=== PATIENT | male | born 1990 | race Caucasian/White ===

== ENCOUNTER 2020-07-03 12:38 | Emergency (ER) | payer OTHER ==
[~2020-07-03] VITALS: Ht 180.3 cm; Wt 63.9 kg
--- NOTE | 2020-07-03 13:18 | NUR ---
PT HAS MULTIPLE COMPLAINTS. CO SOB AND UNABLE TO CATCH BREATH FOR 1 MONTH, WEAKENESS, "I BLACKED OUT ONCE ON SUNDAY" DENIES DRUG USE. STATES HE HAS SOME ANXIETY. PT VSS, ON MULTIFOCAL BUTTON GRINDER.
[2020-07-03 14:00] VITALS: BP 112/71
--- NOTE | 2020-07-03 14:08 | NUR ---
ASSUMED CARE OF PATIENT. PT IS A 29M COMPLAINING OF RESPIRATORY SYMPTOMS AND GENERAL WEAKNESS X 1 MONTH. HERE TODAY FOR WORSENING SYMPTOMS AND "FEELING LIKE HE IS GOING TO PASS OUT." PATIENT IS ON THE MEDICATION COORDINATOR, CYCLING VITALS AND CONTINUOUS SPO2. PATIENT DOES NOT APPEAR TO BE IN DISTRESS AT THIS TIME. CALL LIGHT WITHIN REACH.
[2020-07-03 14:27] LABS: BASOPHILS % (AUTO) 1 % (0-1); EOSINOPHILS % (AUTO) 0 % (1-7); LYMPHOCYTES % (AUTO) 28 % (22-44); MEAN CORPUSCULAR HEMOGLOBIN 33.9 pg (27.5-34.5); MEAN PLATELET VOLUME 6.6 fL (7.4-10.4); MONOCYTES % (AUTO) 5 % (2-9); NEUTROPHILS % (AUTO) 66 % (42-75); PLATELET COUNT 361 x10^3/uL (130-400); RED BLOOD COUNT 4.65 x10^6/uL (4.38-5.82); RED CELL DISTRIBUTION WIDTH 13.4 % (9.4-14.8)
[2020-07-03 14:30] LABS: MD NO
[2020-07-03 14:38] LABS: ALANINE AMINOTRANSFERASE 27 U/L (12-78); ALBUMIN 4.2 g/dL (3.4-5.0); ANION GAP 8 mmol/L (5-15); CALCIUM 8.5 mg/dL (8.5-10.1); CHLORIDE 106 mmol/L (98-107); CREATININE 0.94 mg/dL (0.7-1.3)
--- NOTE | 2020-07-03 14:38 | NUR ---
PATIENT IS REQUESTING TO LEAVE AMA, ADVISED SUZANNE YUEN. PT SIGNED AMA FORM. PT IS STABLE, STEADY GAIT AND IN NO ACUTE DISTRESS.
[2020-07-03 14:43] LABS: ALKALINE PHOSPHATASE 98 U/L (45-117); BILIRUBIN,TOTAL 0.5 mg/dL (0.2-1.0); TOTAL PROTEIN 7.6 g/dL (6.4-8.2); TROPONIN I < 0.015 ng/mL (0.000-0.045)
[2020-07-03 15:00] LABS: AMPHETAMINE SCREEN, URINE Negative (Negative); BARBITURATE SCREEN, URINE Negative (Negative); BENZODIAZEPINE SCREEN, URINE Negative (Negative); CANNABINOID SCREEN, URINE Negative (Negative); COCAINE SCREEN, URINE Negative (Negative); METHADONE SCREEN, URINE Negative (Negative); OPIATE SCREEN, URINE Negative (Negative)
== END 2020-07-03 15:00 | disposition left against medical advice (07) ==
LOC: ED 14:00
DX: R55 Syncope and collapse (principal); R06.00 Dyspnea, unspecified; R00.0 Tachycardia, unspecified
CPT/HCPCS: 36415; 71045; 80053; 80307; 84443; 84484; 85025; 85379; 93005; 99285